=== PATIENT | female | born 1985 | race Caucasian/White ===

== ENCOUNTER 2018-02-02 15:42 | Emergency (ER) | payer BC, OTHER ==
[~2018-02-02] VITALS: Ht 170.2 cm; Wt 72.6 kg
--- NOTE | 2018-02-02 16:16 | NUR ---
PATIENT TO ED DT GENERALIZED WEAKNESS AND N/V SINCE THIS MORNING SP HIKING. PATIENT IS AWAKE AND ALERT, APPEARS IN NO DISTRESS. RESPIRATION EVEN AND UNLABORED. SKIN IS WARM TO TOUCH AND NON DIAPHORETIC. PATIENT IS AFEBRILE. VSS
[2018-02-02] MEDS ORDERED: IBUP200C5 PO (16:22)
[2018-02-02] MEDS ORDERED: CYCLOBENZAPRINE 10 MG TABLET PO ONE (17:00)
[2018-02-02] MEDS ORDERED: IV NS 0.9% 1,000 ML BAG IV ONE ×2 (17:00)
[2018-02-02] MEDS ORDERED: CYCLOBENZAPRINE 10 MG TABLET ONE (17:04)
[2018-02-02 17:13] LABS: BASOPHILS % (AUTO) 0.1 % (0.0-2.0); EOSINOPHILS % (AUTO) 0.2 % (0.0-6.0); HEMATOCRIT 38 % (33-45); HEMOGLOBIN 13.1 g/dL (11.5-14.8); LYMPHOCYTES # (AUTO) 0.8 /CMM (0.8-4.8); LYMPHOCYTES % (AUTO) 5.8 % (20.0-44.0); MEAN CORPUSCULAR HGB CONC 35 g/dl (31.0-36.0); MEAN CORPUSCULAR VOLUME 86 fL (82-100); MONOCYTES # (AUTO) 0.1 /CMM (0.1-1.30); MONOCYTES % (AUTO) 0.9 % (2.0-12.0); NEUTROPHILS # (AUTO) 13.6 /CMM (1.8-8.9); PLATELET COUNT (AUTO) 323 /CMM (150-450); RDW COEFFICIENT OF VARIATION 11.5 (11.5-15.0); RED BLOOD CELL COUNT(AUTO) 4.35 MIL/uL (4.0-5.2); WHITE BLOOD COUNT (AUTO) 14.5 K/uL (4.3-11.0)
[2018-02-02 17:21] LABS: CALCIUM, SERUM 8.9 mg/dL (8.5-10.1); CREATININE 1.1 mg/dL (0.6-1.3); POTASSIUM 4.2 mmol/L (3.5-5.1)
[2018-02-02 17:27] LABS: INR 1.01 (0.85-1.15)
[2018-02-02] MEDS ORDERED: IV D5/0.45 NACL 1,000 ML IV ONE (18:30)
[2018-02-02 18:35] LABS: CREATINE KINASE MB 2.2 ng/mL (0-3.6)
[2018-02-02 19:22] LABS: APPEARANCE,URINE Clear (CLEAR); BILIRUBIN,URINE Negative (NEGATIVE); BLOOD, URINE Trace-intact Ery/uL (NEGATIVE); COLOR,URINE Yellow (YELLOW); KETONES,URINE >=160 (NEGATIVE); LEUKOCYTE ESTERASE ,URINE Negative (NEGATIVE); NITRITE, URINE Negative (NEGATIVE); PH,URINE 5.5 (5.0-8.0); PROTEIN,URINE Negative (NEGATIVE); UGLUCOSE Negative (NEGATIVE); UROBILINOGEN,URINE 0.2 EU/dL (0.2)
[2018-02-02 19:28] LABS: BACTERIA,URINE 1+ /HPF (None Seen); SQUAMOUS EPITHELIAL CELL,UR Moderate /HPF (None Seen); WBC,URINE 0-2 /HPF (0-3)
[2018-02-02 19:30] VITALS: BP 124/80
--- NOTE | 2018-02-02 19:30 | NUR ---
Patient discharged to home in stable condition. Written and verbal after care instructions given. Patient verbalizes understanding of instruction.
== END 2018-02-02 20:04 | disposition home or self-care (01) ==
LOC: ER 15:43
DX: E86.0 Dehydration (principal); M54.6 Pain in thoracic spine; J45.909 Unspecified asthma, uncomplicated; F10.10 Alcohol abuse, uncomplicated; Z41.1 Encounter for cosmetic surgery
CPT/HCPCS: 36415; 80048-TC; 81000-TC; 82550-TC; 82553-TC; 84703-TC; 85025-TC; 85730-TC; A4606; J3490; J7030; Z7610

== ENCOUNTER 2021-01-20 09:36 | Emergency (ER) | payer BC, OTHER ==
[~2021-01-20] VITALS: Ht 170.2 cm; Wt 68.0 kg
[~2021-01-20 09:36] MED LIST: IBUP200C5 PO
--- NOTE | 2021-01-20 09:50 | NUR ---
HEADACHE SINCE HER HEAD COLLIDED WITH HER DOD'S HEAD A WEEK AGO VOMITED X1 LAST NIGHT. PT AAOX4, VSS. RR EVEN & UNLABORED. DENIES CP, SOB, DIZZINESS, N/V AT THIS TIME. PT SEEN & EVAL'D BY DR. LOPEZ. WILL CONT TO MONITOR.
--- NOTE | 2021-01-20 10:02 | NUR ---
PT TO CT VIA WHEELCHAIR.
[2021-01-20 11:04] VITALS: BP 124/75
== END 2021-01-20 11:13 | disposition home or self-care (01) ==
LOC: ER 09:40
DX: S06.0X0A Concussion without loss of consciousness, initial encounter (principal); R51.9 Headache, unspecified; J45.909 Unspecified asthma, uncomplicated; F10.10 Alcohol abuse, uncomplicated; Y90.9 Presence of alcohol in blood, level not specified; Z41.1 Encounter for cosmetic surgery; Z79.899 Other long term (current) drug therapy; W22.8XXA Striking against or struck by other objects, initial encounter; Y93.89 Activity, other specified; Y92.89 Other specified places as the place of occurrence of the external cause; Y99.8 Other external cause status
CPT/HCPCS: 70450-TC

== ENCOUNTER 2025-05-05 21:16 | Emergency (ER) | payer BC, OTHER ==
[~2025-05-05] VITALS: Ht 170.2 cm; Wt 72.6 kg
[2025-05-06] MEDS ORDERED: IBUPROFEN 400 MG TABLET ONE (00:01)
[2025-05-06] MEDS: IBUPROFEN 400 MG TABLET PO ONE (00:06)
[2025-05-06 03:29] VITALS: BP 110/76; TEMP 99.1; O2SAT 96
== END 2025-05-06 03:30 | disposition home or self-care (01) ==
LOC: ER 21:22
DX: M25.571 Pain in right ankle and joints of right foot (principal); F17.200 Nicotine dependence, unspecified, uncomplicated; J45.909 Unspecified asthma, uncomplicated
CPT/HCPCS: 73610-TC; 73630-TC